=== PATIENT | female | born 1970 | race Caucasian/White ===

== ENCOUNTER 2017-01-18 05:46 | Inpatient (IN) | payer OTHER ==
[~2017-01-18] VITALS: Ht 175.3 cm; Wt 74.3 kg
[2017-01-18] VITALS (10 sets, daily range): BP systolic 119–144; BP diastolic 61–113; PULSE 76–117; RESP 16–26; O2SAT 92–98
--- NOTE | 2017-01-18 05:55 | ED.REPORT ---
HPI-General Illness Date of Service Jan 18, 2017 ED Provider: Vianca Gaxiola Patient is a 46 year old female with a hx of EtOH abuse who presents to the ED stating that she has been drinking for 3 days without eating. Her last drink was yesterday. She has not eaten for 4 days. She complains of weakness, nausea, anxiety, and vomiting (onset yesterday). She denies diarrhea, fever, hematemesis , or any other symptoms. She was in rehab for her EtOH abuse during the month of September 2016. This is her second relapse. She is unsure if she has had withdrawal related seizures. She has had similar symptoms previously and reports she was given IV's, anti- nausea medication, and medication for her anxiety. Patient takes Wellbutrin daily but has not been able to take it in the last few days. Nursing Notes Stated Complaint: SUBSTANCE ABUSE Chief Complaint: Substance Abuse Nursing Notes Reviewed: Yes Allergies: Coded Allergies: codeine (Verified Allergy, Unknown, 01/18/17) General Time Seen by MD: 06:07 Chief Complaint Other (EtOH abuse ) Hx Obtained From: Patient, Other family... Arrived By: Walk-in Sudden in Onset?: Yes Onset Occurred: 3 days ago Symptom Duration: Since onset Similar Sx Previous: Yes Past Medical History Past Medical History Anxiety and depression EtOH abuse Past Surgical History Reports: Tubal ligation Smoking History Current Every Day Smoker Social History Alcohol Use: >5 per day Drug Use: Denies drug use, THC Other Social History: Local resident Ambulatory Status Independent Review of Systems Full Review of Systems Constitutional: Reports: Weakness - generalized, Denies: Fever GI: Reports: Nausea, Vomiting, Denies: Diarrhea, Hematemesis Psychiatric: Reports: Anxiety Complete sys rev & neg: except as marked. Physical Exam Vital Signs Vital Signs Date Time Temp Pulse Resp B/P Pulse Ox O2 Delivery O2 Flow Rate FiO2 01/18/17 10:51 81 16 141/113 96 Room Air 01/18/17 10:14 94 17 126/66 97 Room Air 01/18/17 08:12 81 21 127/61 93 01/18/17 07:20 102 26 144/82 92 Room Air 01/18/17 05:49 36.1 117 24 96 Room Air Initial VS: Reviewed Neck: Full range of motion Skin: Warm, Dry Neurologic: Alert, Oriented, Nonfocal General/Constitutional: Awake, Alert, Well developed Distress / Hydration: Positive: Distress moderate Behavior: Positive: Tearful Actively vomiting. EtOH of 165. CIWA of 13 on initial presentation Head / Eyes: Atraumatic, Normocephalic Flushed but no spider angiomas Respiratory / Chest: Breath sounds NL, Breath sounds = bilat, No respiratory distress Cardiovascular: No murmurs Heart Rate / Rhythm: Positive: Tachycardia Tenderness/Guarding/Rebound: Positive: Tender epigastric Epigastric and abdominal wall tenderness secondary to vomiting. No deeper abdominal pain. Lower Extremity / Pelvis / MS: No edema Interpretation & Diagnostics Lab Results Interpretation Result Diagram: 01/18/17 0643 01/18/17 0643 Test 01/18/17 06:10 01/18/17 06:43 Urine Color Yellow (YELLOW) Urine Appearance Slightly cloudy Urine pH 7.0 (5.0-8.0) Urine Specific [place] 1.020 (1.003-1.035) Urine Protein 30mg/dL (NEG,TRACE) Urine Glucose (UA) Negativemg/dL (NEGATIVE) Urine Ketones 15mg/dL (NEGATIVE) Urine Occult Blood Trace (NEGATIVE) Urine Nitrite Negative (NEGATIVE) Urine Bilirubin Negative (NEGATIVE) Urine Urobilinogen Normalmg/dL (NORMAL) Urine Leukocyte Esterase Negative (NEGATIVE) Urine RBC 0-2/hpf (0-2) Urine WBC 0-5/hpf (0-5) Urine Epithelial Cells Occasional/hpf (NONE-MOD) Urine Crystals None seen (NONE SEEN) Urine Bacteria Few/hpf (NONE-FEW) Urine Hyaline Casts None/lpf (NONE) Urine Granular Casts None seen (NONE SEEN) Urine Waxy Casts None seen (NONE SEEN) Urine Red Blood Cell Casts None seen (NONE SEEN) Urine White Blood Cell Casts None seen (NONE SEEN) Urine Mucus Present (None Seen) Urine Trichomonas None seen (NONE SEEN) Urine Yeast None (NONE SEEN) Urinalysis Comment Amorphous sediment Urine Culture Reflexed Not indicated White Blood Count 7.7th/mm3 (3.8-10.1) Red Blood Count 5.55mil/mm3 (3.90-5.20) Hemoglobin 16.6g/dL (12.0-15.6) Hematocrit 48.7% (35.0-46.0) Mean Corpuscular Volume 87.7fL (81-100) Mean Corpuscular Hemoglobin 29.9pg (27.0-35.0) Mean Corpuscular Hemoglobin Concent 34.1% (32.0-37.0) Red Cell Distribution Width 16.7% (12.3-15.4) Platelet Count 311bil/L (150-400) Neutrophils (%) (Auto) 66.6% (40-74) Lymphocytes (%) (Auto) 26.4% (14-46) Monocytes (%) (Auto) 5.2% (4-12) Eosinophils (%) (Auto) 0.3% (0-5) Basophils (%) (Auto) 1.4% (0-3) Sodium Level 143mEq/L (134-144) Potassium Level 4.0mEq/L (3.5-5.2) Chloride Level 103mEq/L (97-108) Carbon Dioxide Level 21mmol/L (18-29) Blood Urea Nitrogen 11mg/dL (6-24) Creatinine 0.67mg/dL (0.57-1.00) Estimat Glomerular Filtration Rate 136mL/min (>59) Glucose Level 113mg/dL (60-99) Calcium Level 9.4mg/dL (8.5-10.1) Magnesium Level 2.1mg/dL (1.6-2.6) Total Bilirubin 0.3mg/dL (0.0-1.2) Aspartate Amino Transf (AST/SGOT) 44U/L (0-50) Alanine Aminotransferase (ALT/SGPT) 26U/L (0-32) Alkaline Phosphatase 82U/L (25-150) Total Protein 7.0g/dL (6.4-8.4) Albumin 4.1g/dL (3.4-5.0) Lipase 47U/L (13-60) Hold Vieyra Top Tube Received (Received) Alcohols 165mg/dL (0-10) Re-Eval/Medical Decision Time of Eval: 07:54 Patient Status: Condition improved Re-Evaluation/Progress Note: Rechecked patient. She is still tearful but feeling better. Awaiting lab results. CIWA of 13. Time of Eval: 09:30 Re-Evaluation/Progress Note: Rechecked patient. CIWA score of 13. Time of Eval: 09:51 Re-Evaluation/Progress Note: Rechecked patient. Offered admission. Patient understands and agrees with plan for admission . All questions addressed at this time Consultation : Referral / Consult Name: Jaskaran Dillon Consulted With: Hospitalist Call Returned at: 11:11 Soap Mixer: Will see patient, Agrees with eval, Agrees with plan, Accepts admit Note: Discussed pt case. Accepts admit. Counseled Regarding: Diagnosis, Lab results, Need for admission Discharge & Departure Primary Impression: Alcohol withdrawal Complication of substance-induced condition: uncomplicated Qualified Code: F10.230 - Alcohol dependence with withdrawal, uncomplicated Additional Impression: Anxiety Disposition: ADMITTED TO HOSPITAL Discharge Condition All VS Reviewed: Yes Condition: Stable Referrals: Dianne Lozada PA-C (PCP) Scribe Attestation Portions of this note were transcribed by Claudia Trujillo. I, Dr. Gaxiola personally performed the history, physical exam and medical decision-making; I reviewed and confirmed the accuracy of the information in the transcribed note. Signed by: Claudia Trujillo 01/18/17, 1113 copies to: Dianne Lozada PA-C, Shawna L MD Jan 18, 2017 05:55 CLAUDIA TRUJILLO Jan 18, 2017 06:13
[2017-01-18] MEDS ORDERED: Pantoprazole 4 mg/mL 10 mL Inj IVPUSH ONE (06:10)
[2017-01-18] MEDS ORDERED: Ondansetron 2 mg/mL 2 mL Inj IVPUSH ONE (06:10)
[2017-01-18] MEDS ORDERED: Thiamine Inj 100 MG, Folic Acid Inj 1 MG, Magnesium Sulfate 50% Inj 2 GM, Multivitamins... IV ONE ×10 (06:10→07:00)
[2017-01-18] MEDS ORDERED: LORazepam 2 mg Tablet PO ONE ×2 (06:10→14:40)
[2017-01-18] MEDS ORDERED: 0.9% Sodium Chloride 1,000 ML IV ONE (06:10)
[2017-01-18 07:05] LABS: BASOPHILS % (AUTO) 1.4 % (0-3); EOSINOPHILS % (AUTO) 0.3 % (0-5); MONOCYTES % (AUTO) 5.2 % (4-12); Mean Corpuscular Hemoglobin 29.9 pg (27.0-35.0); Mean Corpuscular Volume 87.7 fL (81-100); NEUTROPHILS % (AUTO) 66.6 % (40-74); Platelet Count 311 bil/L (150-400)
[2017-01-18 08:01] LABS: Magnesium 2.1 mg/dL (1.6-2.6)
[2017-01-18] MEDS ORDERED: Promethazine Inj 50 MG in 0.9% Sodium Chloride-Pha MIX 100 ML IV ONE (09:30)
[2017-01-18 10:18] LABS: APPEARANCE,URINE SLIGHTLY CLOUDY (CLEAR,HAZY); COLOR,URINE YELLOW (YELLOW)
[2017-01-18 10:19] LABS: OCCULT BLOOD,URINE TRACE (NEGATIVE); UROBILINOGEN,URINE NORMAL (NORMAL)
--- NOTE | 2017-01-18 11:11 | PCM.HPMED ---
Subjective Date of Service Jan 18, 2017 Primary Provider: Admitting Physician: Primary Care Physician: Dianne Lozada PA-C Attending Physician: Chief Complaint: Recent alcohol use History of Present Illness: Patient is a 46-year-old female past medical history significant for anxiety spectrum disorder and alcohol dependence, presented following three-day relapse during this time she is a almost nothing drank heavily, approximately half a liter of hard alcohol. Her last drink was reportedly yesterday. Today she awoke nauseated feeling weak, she is experiencing multiple episodes of emesis also endorses elevated anxiety level even worse than her baseline. Does deny any fever chills or palpitations. She denies any visual changes dizziness or recent seizure activity. ER note accounts the patient was unsure if she has ever had withdrawal seizures however patient adamantly denies ever having seizure events in the setting withdrawal or other. She does endorse previous withdrawals have been hard producing tremor and nausea however she notes no other complications, also denies any hallucinations currently and denies a history of delirium tremens previously. He was in rehabilitation for alcohol dependence earlier this year, she completed a month treatment in September. This is her second relapse. The emergency department she was right intravenous medications for nausea and anxiety which have helped a great deal, she notes her a feeling significant improvement. Review of Systems: A 10 point review of systems was conducted and entirely negative except for pertinent positives and negatives included above history of present illness Allergies Coded Allergies: codeine (Verified Allergy, Unknown, 01/18/17) Home Medications Wellbutrin previously but noncompliant over past few days. PMH Anxiety and depression EtOH abuse Surgical History Tubal ligation Family History Noncontributory. Patient denies any known history of family disease Social History Hx Alcohol Use: Yes (daily) Hx Tobacco Use: Yes Smoking Status: Current Every Day Smoker Exam Vital Signs Vital Sign - Last Date Time Temp Pulse Resp B/P Pulse Ox O2 Delivery O2 Flow Rate FiO2 01/18/17 10:51 81 16 141/113 96 Room Air 01/18/17 05:49 36.1 Intake and Output 01/17/17 01/17/17 01/18/17 Cumulative From/Thru 15:00 23:00 07:00 01/18/17 05:49 - 01/18/17 06:51 Intake Total 1000 ml 1000 ml Balance 1000 ml 1000 ml Intake IV Total 1000 ml 1000 ml General: Alert, Oriented X3, Cooperative, Moderate Distress Eyes: PERRLA, EOMI Mouth: Mucous Membr Moist/[place] Chest & Lungs: Clear to auscultation & percussion Cardiovascular: Regular Rate/Rhythm Abdomen: Non-tender, Non-distended Extremities: No cyanosis/clubbing/edma bilat Neurological: Grossly Neurologically Intact Lab and Diagnostics Result Diagram: 01/18/1764201/18/17642 Assessment & Plan 46 old female with past medical history significant for mood disorder and alcohol dependence, admitted following relapse prolonged period of alcohol use, the [facility] for medical management of expected alcohol withdrawals. 1. Alcohol dependence with acute withdrawal - Patient does have a medical history significant for menstrual seizures as such is a thus at risk for complicated withdrawal and should be monitored medically during acute. - She will placed on CIWA protocol, with Valium to be provided as needed - Vitamin supplements and fluid were provided near be continued daily on admission 2. Anxiety spectrum disorder - Will restart patient's Wellbutrin at this time - Valium which is prescribed for opiate which I will will also be useful for anxiety symptoms in the acute setting. - We will continue to monitor may consider additional medication therapy condition proves refractory. - SSRI trial may be a reasonable consideration, patient states her vision has been effective in the past when taking routinely, we will first try this medication again. Pain Evaluation: Adequate Pain Control GI Prophylaxis: Not indicated VTE Mechanical Devices: Anti-Embolic stockings Resuscitation Status: CPR: Attempt Resuscitation Time spent 25 minutes Jaskaran Dillon DO Jan 18, 2017 11:11
[2017-01-18] MEDS ORDERED: Polyethylene Glycol (PEG) 17 Gm Powder PO PRN (11:15)
[2017-01-18] MEDS ORDERED: Alum-Mag Hydrox-Simeth 30 mL Suspension PO PRN (11:15)
[2017-01-18] MEDS: 0.9% Sodium Chloride 1,000 ML IV SCH ×2 (13:21→21:11)
[2017-01-18] MEDS ORDERED: BUPR100T15 PO (15:00)
--- NOTE | 2017-01-18 17:59 | NUR ---
Admission Patient admitted to the floor at 1150 from the ED. Admission questions done by primary RN. Medication list accomplished by admit Nurse. Initial CIWA score while in the floor is 5. Pain score of 0/10. Vitals - t-37.0, bp-129/72, p-80, rr-18, O2- 98 on RA. Oriented patient to the room, placed bed in lowest position and call light within reach.
[2017-01-19] VITALS (9 sets, daily range): BP systolic 125–135; BP diastolic 78–87; PULSE 69–91; RESP 18–20; O2SAT 96–99
[2017-01-19] MEDS: Ondansetron 2 mg/mL 2 mL Inj IVPUSH PRN ×3 (04:47→19:31)
--- NOTE | 2017-01-19 05:00 | NUR ---
PT CARE/ACTIVITY/CIWA At start of shift, pts IV pump alarming d/t placement of IV. Pt offered jennifer sleeve and to start IV in another location, pt declined. Pt restless, generally anxious, does not want IVF. Pt soon requested to leave. Pt explained that she would be leaving AMA at this time, pt still wanting to leave. Pt received phone call from friend/family, agreed to stay overnight. Pt has been up in room a couple times. Pt anxious regarding not being able to sleep in the hospital. Noc hospitalist called, rec'd order for sleep aid, dose given, pt able to sleep. Most of shift pt CIWA score 1-4. Pt denies N/V, no tremors noted, denies any hallucinations, remains alert & oriented. At approx 0430, pt put application development project manager light. At this time, pt visibly distressed--more restless, pt states, "I feel like I'm crawling out of my skin." RN suggested that pt walk round in hallway, RN SBA, pt unable to walk very far before feeling unsteady. Pt assisted back to room, pt then started to retch and threw up some undigested food and bile. Pt now scoring 12, prn IV diazepam 5mg and IV zofran 4mg administered. Pt now resting in bed. Continue to monitor. Addendum: 01/19/17 at 0520 by PORSHA CAMPBELL RN Bed alarm in use at this time.
[2017-01-19] MEDS: Multivit-Miner-Folic Acid-Iron Tablet PO SCH (08:16)
[2017-01-19] MEDS: 0.9% Sodium Chloride 1,000 ML IV SCH ×3 (12:21→22:24)
--- NOTE | 2017-01-19 13:39 | PCM.PNMED ---
Subjective Date of Service Jan 19, 2017 Subjective Patient feels improvement overnight, CIWA scores however are still elevated and she is continuing to require some benzodiazepine for control of withdrawal syndrome. She is also endorsing headache which is more severe than night previous. Anxiety is slightly improved with initiation of Wellbutrin. Seizure-like activity reported, no tremor visual changes endorsed by patient. Denies any palpitations shortness of breath other acute complaints this time outside of those listed above. Exam Vital Signs Vital Sign - Last Date Time Temp Pulse Resp B/P Pulse Ox O2 Delivery O2 Flow Rate FiO2 01/19/17 13:27 37.5 73 18 133/83 96 Room Air Intake and Output 01/18/17 01/18/17 01/19/17 Cumulative From/Thru 15:00 23:00 07:00 01/18/17 05:49 - 01/19/17 06:34 Intake Total 600 ml 973 ml 2573 ml Output Total 500 ml 700 ml 1200 ml Balance 100 ml 273 ml 1373 ml Intake Oral 600 ml 437 ml 1037 ml IV Total 536 ml 1536 ml Output Urine Total 500 ml 650 ml 1150 ml Emesis 50 ml 50 ml # Voids 1 1 # Bowel Movements 0 0 Exam General: Alert, Oriented X3, Cooperative, Moderate Distress Eyes: PERRLA, EOMI Mouth: Mucous Membr Moist/[place] Chest & Lungs: Clear to auscultation & percussion Cardiovascular: Regular Rate/Rhythm Abdomen: Non-tender, Non-distended Extremities: No cyanosis/clubbing/edma bilat Neurological: Grossly Neurologically Intact IVs and Medications Medications Reviewed: Medications were reviewed in detail Lab and Diagnostics Result Diagram: 01/18/1743 01/18/1743 Assessment & Plan 46 old female with past medical history significant for mood disorder and alcohol dependence, admitted following relapse prolonged period of alcohol use, the [facility] for medical management of expected alcohol withdrawals. 1. Alcohol dependence with acute withdrawal - Patient does have a medical history significant for menstrual seizures as such is a thus at risk for complicated withdrawal and should be monitored medically during acute. - She will be continued on CIWA protocol, with Valium to be provided as needed - Vitamin supplements and fluid were provided near be continued daily on admission 2. Anxiety spectrum disorder -Continue Wellbutrin therapy at this time - Valium which is prescribed for opiate which I will will also be useful for anxiety symptoms in the acute setting. - We will continue to monitor may consider additional medication therapy condition proves refractory. - SSRI trial may be a reasonable sugar anxiety remain elevated with continued use of Wellbutrin. 3. Headache - Given normal renal function and will utilize Tylenol which has been effective for patient in the past as first-line agent - Continue to monitor consider further interventions as needed. Pain Evaluation: Adequate Pain Control GI Prophylaxis: Not indicated VTE Mechanical Devices: Anti-Embolic stockings Resuscitation Status: CPR: Attempt Resuscitation Time spent 25 minutes Jaskaran Dillon DO Jan 19, 2017 13:39
--- NOTE | 2017-01-19 16:01 | NUR ---
Social Work-screening: Data:EMR reviewed. Pt is a 46 y/p female who was admitted on 01/18/17 for alcohol abuse per H&P. Pt's insurance is [employer] and PCP is MT Vanegas. EMR Reviewed. Pt's readmission score is 3. Pt resides at home where she remains independent with ADLS. order received for CD assessment. SW attempted to see pt to complete CD assessment, but RN in room. SW to follow up with pt tomorrow. SW will continue to follow. Assessment:Pt who is independent at baseline. Plan:SW to follow up with CD assessment tomorrow. SW will continue to follow. BELINDA Sherwood
[2017-01-20 00:36] VITALS: BP 126/80; PULSE 81; RESP 20; O2SAT 98
--- NOTE | 2017-01-20 03:04 | NUR ---
CIWA/anxiety At 1925 PT called, she wanted to talk to the doctor about being DC, wanted to go through withdrawals at home w, wanted to smoke but refused the nicotine patch stating they made her nauseated. She was diaphoretic, tachypnic, nauseated dry heaving with a CIWA score of 23. Subsurface Augmentee Operator talked the OT into staying and trying Valium and Zofran, she agreed and was given 10mg of Valium, 8mg Zofran both IV. PT settled well but required another Valium 5mg a half hour later then settle well most of the night.
[2017-01-20 05:20] VITALS: BP 134/81; PULSE 74; RESP 18; O2SAT 97
[2017-01-20] MEDS: 0.9% Sodium Chloride 1,000 ML IV SCH (08:24)
[2017-01-20] MEDS: Multivit-Miner-Folic Acid-Iron Tablet PO SCH (08:25)
--- NOTE | 2017-01-20 09:11 | NUR ---
Social Work-screening/CD assessment: Data:EMR reviewed. Pt is a 46 y/o female who was admitted on 01/18/17 for alcohol abuse per H&P. Pt's insurance is [employer] and PCP is MT Vanegas. EMR REveiwed. Pt's readmission score is 3. SW met with pt to discuss discharge planning and complete CD assessment. Pt resides on [place] alone where she remains independent with ADLs. Pt works and drives at baseline.SW discussed DPOA/ advanced directive, pt confirms she has not completed this and is not interested in any information at this time. SW discussed pt alcohol use. Pt states she does not really want to talk about it and is very minimal with her answer. Pt states she used to drink alot, but recently she drank for 3 days straight, had a relapse. Pt states she went to inpt treatment and that is how she was able to stay sober. SW discussed having CDP come meet with pt and pt declined stating she will be fine. Pt is agreeable to accepting CD resources, but does not want to discuss further. SW provided pt with list of outpt CD resources in the area. Pt's friend to provide transport home at discharge. SW will continue to follow. Assessment:Pt who is independent at baseline. Plan:Pt to discharge home when medically stable via POV. Pt declining meeting with CDP, but is accepting of outpt CD resources. No other discharge needs identified. SW will continue to follow if needs arise. BELINDA Sherwood
[2017-01-20 09:19] VITALS: BP 123/90; PULSE 71; RESP 18; O2SAT 98
[2017-01-20 11:19] VITALS: PULSE 71
--- NOTE | 2017-01-20 11:59 | PCM.DC.MED ---
Discharge Summary Date of Service Jan 20, 2017 Dates of Hospitalization Date of Hospital Admission Jan 18, 2017 at 11:26 Date of Discharge: Jan 20, 2017 Providers: Admitting Physician: Jaskaran Dillon DO Primary Care Physician: Dianne Lozada PA-C Attending Physician: Jaskaran Dillon DO Diagnosis at Time of Discharge Diagnosis at Time of Discharge Alcohol dependence with acute withdrawal, improving. Anxiety spectrum disorder, active. Brief History Patient is a 46-year-old female past medical history significant for anxiety spectrum disorder and alcohol dependence, presented following three-day relapse during this time she is a almost nothing drank heavily, approximately half a liter of hard alcohol. Her last drink was reportedly yesterday. Today she awoke nauseated feeling weak, she is experiencing multiple episodes of emesis also endorses elevated anxiety level even worse than her baseline. Does deny any fever chills or palpitations. She denies any visual changes dizziness or recent seizure activity. ER note accounts the patient was unsure if she has ever had withdrawal seizures however patient adamantly denies ever having seizure events in the setting withdrawal or other. She does endorse previous withdrawals have been hard producing tremor and nausea however she notes no other complications, also denies any hallucinations currently and denies a history of delirium tremens previously. He was in rehabilitation for alcohol dependence earlier this year, she completed a month treatment in September. This is her second relapse. The emergency department she was right intravenous medications for nausea and anxiety which have helped a great deal, she notes her a feeling significant improvement. Hospital Course 1. Alcohol dependence with acute withdrawal -Initially thought to have had history of complex withdrawals, patient denied any known withdrawal seizures or other complications of alcohol withdrawn past. - 0 scores were rapidly downward trending, he was nearly 24 hours off of Valium therapy at time of discharge. - Patient remained extremely anxious and had difficulty sleeping throughout her hospital stay, this is thought to be at least in part due to acute withdrawal syndrome and hopefully improve with continued abstinence - Resources for treatment in outpatient setting for alcohol dependence were provided to patient, she declined to arrange appointment or formal falls prior to discharge. She states she plans to do so is returning home. -Work note was provided recommending half-time for next week to allow additional time to set up rehabilitation program and to prevent excessive stress made on discharge from hospital. 2. Anxiety spectrum disorder -Continued Wellbutrin therapy hospitalization and on discharge - Valium which was prescribed for alcohol withdrawal may have had some short- term effects which benefited her anxiety but this was not continued on discharge. - SSRI trial may be a reasonable sugar anxiety remain elevated with continued use of Wellbutrin, will defer this decision to outpatient provider.. Exam Vital Signs (Last) Date Time Temp Pulse Resp B/P Pulse Ox O2 Delivery O2 Flow Rate FiO2 01/20/17 11:19 71 01/20/17 09:19 36.8 18 123/90 98 Room Air Exam Patient is visibly improved from one day prior. Breathing comfortably lying in hospital bed in no acute distress Tremor resolved patient maintains good eye contact speech normal prosody notes mood is better anxiety level lower though still experience some anxiety especially thoughts of returning to life stress including job and other. Test 01/18/17 06:10 01/18/17 06:43 Urine Color Yellow (YELLOW) Urine Appearance Slightly cloudy Urine pH 7.0 (5.0-8.0) Urine Specific [place] 1.020 (1.003-1.035) Urine Protein 30mg/dL (NEG,TRACE) Urine Glucose (UA) Negativemg/dL (NEGATIVE) Urine Ketones 15mg/dL (NEGATIVE) Urine Occult Blood Trace (NEGATIVE) Urine Nitrite Negative (NEGATIVE) Urine Bilirubin Negative (NEGATIVE) Urine Urobilinogen Normalmg/dL (NORMAL) Urine Leukocyte Esterase Negative (NEGATIVE) Urine RBC 0-2/hpf (0-2) Urine WBC 0-5/hpf (0-5) Urine Epithelial Cells Occasional/hpf (NONE-MOD) Urine Crystals None seen (NONE SEEN) Urine Bacteria Few/hpf (NONE-FEW) Urine Hyaline Casts None/lpf (NONE) Urine Granular Casts None seen (NONE SEEN) Urine Waxy Casts None seen (NONE SEEN) Urine Red Blood Cell Casts None seen (NONE SEEN) Urine White Blood Cell Casts None seen (NONE SEEN) Urine Mucus Present (None Seen) Urine Trichomonas None seen (NONE SEEN) Urine Yeast None (NONE SEEN) Urinalysis Comment Amorphous sediment Urine Culture Reflexed Not indicated White Blood Count 7.7th/mm3 (3.8-10.1) Red Blood Count 5.55mil/mm3 (3.90-5.20) Hemoglobin 16.6g/dL (12.0-15.6) Hematocrit 48.7% (35.0-46.0) Mean Corpuscular Volume 87.7fL (81-100) Mean Corpuscular Hemoglobin 29.9pg (27.0-35.0) Mean Corpuscular Hemoglobin Concent 34.1% (32.0-37.0) Red Cell Distribution Width 16.7% (12.3-15.4) Platelet Count 311bil/L (150-400) Neutrophils (%) (Auto) 66.6% (40-74) Lymphocytes (%) (Auto) 26.4% (14-46) Monocytes (%) (Auto) 5.2% (4-12) Eosinophils (%) (Auto) 0.3% (0-5) Basophils (%) (Auto) 1.4% (0-3) Sodium Level 143mEq/L (134-144) Potassium Level 4.0mEq/L (3.5-5.2) Chloride Level 103mEq/L (97-108) Carbon Dioxide Level 21mmol/L (18-29) Blood Urea Nitrogen 11mg/dL (6-24) Creatinine 0.67mg/dL (0.57-1.00) Estimat Glomerular Filtration Rate 136mL/min (>59) Glucose Level 113mg/dL (60-99) Calcium Level 9.4mg/dL (8.5-10.1) Magnesium Level 2.1mg/dL (1.6-2.6) Total Bilirubin 0.3mg/dL (0.0-1.2) Aspartate Amino Transf (AST/SGOT) 44U/L (0-50) Alanine Aminotransferase (ALT/SGPT) 26U/L (0-32) Alkaline Phosphatase 82U/L (25-150) Total Protein 7.0g/dL (6.4-8.4) Albumin 4.1g/dL (3.4-5.0) Lipase 47U/L (13-60) Hold Vieyra Top Tube Received (Received) Alcohols 165mg/dL (0-10) Discharge Medications Discharge Medications Bupropion (Bupropion) 100 Mg Tablet 100 MG PO BID (Reported) Followup Plan Disposition: Home in medically stable condition Discharge Diet: No restrictions Discharge Activity: No restrictions Follow-up Provider: Dianne Lozada PA-C Follow-up with PCP in: 1 week Time spent 45 minutes copies to: Dianne Lozada PA-C, Benjamin P DO Jan 20, 2017 11:59
--- NOTE | 2017-01-20 12:00 | PCM.DIMED ---
Discharge Instructions Date of Service Jan 20, 2017 Dates of Hospitalization Jan 18, 2017 at 11:26 Discharge Diagnosis Discharge Diagnosis Alcohol dependence with acute withdrawal, improving. Anxiety spectrum disorder, active. Diet Discharge Diet: No restrictions Activity Discharge Activity: No restrictions Patient Instructions Patient Instructions Recommend follow-up with primary care doctor in 1 week following discharge to discuss this hospitalization, and further evaluation and treatment of your anxiety disorder. I would strongly encourage establishment with alcohol rehabilitation program for continued support in alcohol cessation. Follow-up Provider: Dianne Lozada PA-C Follow-up with PCP in: 1 week Jaskaran Dillon DO Jan 20, 2017 12:00
--- NOTE | 2017-01-20 12:57 | NUR ---
Social Work: Discharge Data: Pt is on day 2 of hospitalization. EMR reviewed. D/C orders are in. Pt previously accepted CD resources. No further d/c planning needs at this time. [facility] will continue to follow if needs arise. Assessment: Pt who is independent at baseline. Plan: Pt will d/c home via POV today. Pt previously accepted CD resources. No further d/c planning needs at this time. [facility] will continue to follow if needs arise. BELINDA Guzman
--- NOTE | 2017-01-20 13:11 | NUR ---
Discharge: Patient discharged to home @ approx 1300. IV d/c'd intact, telemetry removed, library monitor notified. Personal belongings sent home with patient. Reviewed home medication list, d/c instructions and follow up appointments. Verbalized understanding. 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 Ambulated to main entrance accompanied by this RN. No apparent distress noted at time of discharge.
== END 2017-01-20 13:06 | disposition home or self-care (01) | DRG 897 ==
LOC: SED 05:46 → OBSVTOIN 11:26 → MPC 11:26
PROVIDERS: ADMIT Family Medicine; ATTEND Family Medicine
DX: F10.239 Alcohol dependence with withdrawal, unspecified (principal); R51 Headache; F41.8 Other specified anxiety disorders